=== PATIENT | male | born 1960 | race Caucasian/White ===

== ENCOUNTER 2020-02-29 18:24 | Inpatient (IN) | payer MEDICAID, SELFPAY ==
[~2020-02-29] VITALS: Ht 193 cm; Wt 94.8 kg
[2020-02-29 18:48] VITALS: BP_SYST 150
--- NOTE | 2020-02-29 18:52 | NUR ---
Patient to ER CHAIR 1 for evaluation.
--- NOTE | 2020-02-29 18:53 | NUR ---
PATIENT BROUGHT IN S FROM HOME COMPLAINING OF ACUTE ONSET INTERMITTENT CRAMPING SHARP MID BACK PAIN RADIATING TO UPPER BACK AND LEFT FLANK. REPORTS HE WAS BUILDING A CAGE WHEN IT HAPPENED. DENIES ANY TRAUMA. REPORTS HE VOMITED X 2 AND LOST CONSCIOUSNESS X 4 DUE TO PAIN. PATIENT WAS GIVEN 4MG OF MORPHINE SULFATE IM FROM MEDICS IN FIELD. PAIN 10/10. PATIENT IS RESTLESS AND UNABLE TO SIT. REPORTS HX OF CHRONIC BACK PAIN AND HTN. NO OTHER COMPLAINTS/INJURIES PER PATIENT OR NOTED. WILL CONTINUE TO MONITOR.
--- NOTE | 2020-02-29 19:01 | NUR ---
MATHIEU SARMIENTO examining patient.
--- NOTE | 2020-02-29 19:05 | NUR ---
MOVED TO BED 3
[2020-02-29] MEDS ORDERED: MORPHINE 4 MG/ML INJ. SYRINGE IVP ONE (19:15)
[2020-02-29] MEDS ORDERED: NACL 0.9% 1,000 ML IV ONE (19:15)
[2020-02-29] MEDS ORDERED: ONDANSETRON HCL 4 MG/2 ML VIAL IVP ONE (19:15)
--- NOTE | 2020-02-29 19:20 | NUR ---
ER Dr. Harper at bedside examining patient.
--- NOTE | 2020-02-29 19:25 | NUR ---
# 20 gauge angiocath placed to LAC. Use of asceptic technique. Opsite placed over site. Blood return noted. Blood for lab drawn from site. Flushed with 10 cc of normal saline. No evidence of infiltration noted. Patient tolerated well.
[2020-02-29] MEDS ORDERED: LORazepam 2 MG/ML VIAL IVP ONE (19:30)
[2020-02-29] MEDS ORDERED: METOPROLOL TARTRATE 5 MG/5 ML VIAL IVP ONE (19:30)
--- NOTE | 2020-02-29 19:37 | NUR ---
Medicated per MD orders. IVF infusing with no s/s of infiltration at this time. Will cont to monitor
[2020-02-29 19:42] LABS: BASOPHILS # (AUTO) 0.1 K/uL (0.0-0.2); BASOPHILS % (AUTO) 0.7 % (0.0-2.0); EOSINOPHILS # (AUTO) 0.2 K/uL (0.0-0.4); EOSINOPHILS % (AUTO) 1.3 % (0.0-4.0); HEMATOCRIT 48.9 % (36-54); HEMOGLOBIN 17.1 g/dL (14.0-18.0); LYMPHOCYTES # (AUTO) 1.6 K/uL (1.0-5.5); LYMPHOCYTES % (AUTO) 9.2 % (20.5-51.5); MEAN CORPUSCULAR HEMOGLOBIN 34 pg (27-31); MEAN CORPUSCULAR HGB CONC 35 % (32-36); MEAN CORPUSCULAR VOLUME 96 fL (79.0-98.0); MONOCYTES # (AUTO) 2.5 K/uL (0.0-1.0); MONOCYTES % (AUTO) 14.5 % (1.7-9.3); NEUTROPHILS # (AUTO) 12.6 K/uL (1.8-7.7); NEUTROPHILS % (AUTO) 74.3 % (40.0-70.0); PLATELET COUNT (AUTO) 268 K/uL (130-430); RED CELL DISTRIBUTION WIDTH 13.2 % (9.0-15.0)
[2020-02-29] MEDS ORDERED: METOPROLOL TARTRATE 5 MG/5 ML VIAL ONE (19:49)
[2020-02-29] MEDS ORDERED: LORazepam 2 MG/ML VIAL ONE (19:49)
[2020-02-29 19:59] LABS: PROTHROMBIN TIME 10.2 SECS (9.5-12.5)
[2020-02-29 20:00] LABS: CALCIUM 9.2 mg/dL (8.4-11.0); CREATININE 1.53 mg/dL (0.55-1.30); POTASSIUM 3.6 mmol/L (3.5-5.1)
[2020-02-29 20:15] LABS: ALBUMIN 4.4 g/dL (3.4-4.8); TOTAL BILIRUBIN 0.8 mg/dL (0.0-1.0)
--- NOTE | 2020-02-29 20:38 | NUR ---
Patient resting quietly. No acute distress noted. bp 150/112 AFTER LOPRESSOR 5MG IVP.DR. SANCHEZ NOTIFIED
[2020-02-29] MEDS ORDERED: fentaNYL CITRATE/PF 100 MCG/2 ML AMP IVP ONE ×2 (21:00→21:45)
[2020-02-29 21:12] LABS: BILIRUBIN,URINE NEGATIVE (NEGATIVE); BLOOD, URINE 2+ (NEGATIVE); CLARITY/URINE CLEAR (CLEAR); COLOR,URINE YELLOW (YELLOW); GLUCOSE,URINE NEGATIVE (NEGATIVE); KETONES,URINE 1+ (NEGATIVE); LEUKOCYTE ESTERASE ,URINE NEGATIVE (NEGATIVE); NITRITE, URINE NEGATIVE (NEGATIVE); PH,URINE 6.5 (5.0-8.0); PROTEIN URINE TRACE (NEGATIVE); UROBILINOGEN,URINE 0.2 (0.2-1.0)
[2020-02-29 21:48] LABS: BACTERIA,URINE None Seen /HPF (None Seen); RBC,URINE 20-50 /HPF (0-3); WBC,URINE NONE SEEN /HPF (0-3)
--- NOTE | 2020-02-29 22:07 | NUR ---
MAGED MOJICA OBTAINED AND SENT TO LAB FOR PROCESSING
--- NOTE | 2020-02-29 22:08 | NUR ---
CODE STATUS FORM PLACED IN CHART. PATIENT STATES HE IS FULL CODE
--- NOTE | 2020-02-29 22:08 | NUR ---
PATIENT STATES HE IS FULL CODE
--- NOTE | 2020-02-29 22:19 | NUR ---
ER at bedside DISCUSSING RESULTS OF CT SCAN AND ADMISSION
[2020-02-29] MEDS ORDERED: HYDROmorphone 1 MG INJ. 1 MG/ML AMPUL IVP PRN (22:30)
--- NOTE | 2020-02-29 22:42 | NUR ---
Cici boss in [facility] - 02/29/20 at 2243 by SDEDCJM PATIEN RETURNED FROM CT SCAN
--- NOTE | 2020-02-29 22:43 | NUR ---
Patient will be admitted to care of DR CASTLE. Admitted to MED SURG unit. Will go to room 117A. . Complete and up to date summary report printed. SBAR report to be given at bedside with opportunity for questions.
[2020-02-29] MEDS: HYDROmorphone 2 MG/ML VIAL IVP PRN (22:55)
[2020-02-29] MEDS: cloNIDine HCL 0.1 MG TABLET PO PRN (23:11)
[2020-02-29] MEDS ORDERED: HYDROmorphone 2 MG/ML VIAL ONE (23:11)
[2020-02-29] MEDS: METOCLOPRAMIDE HCL 10 MG/2 ML VIAL IVP SCH (23:12)
[2020-02-29] MEDS ORDERED: cefTRIAXone 2 GM VIAL ONE (23:22)
--- NOTE | 2020-02-29 23:58 | NUR ---
PATIENT SLEEPING IN [facility]. PAIN 0/10, BP IS 147/101. MD JONES NOTIFIED. ORDERED TORADOL 30 MG IVP.
[2020-03-01] MEDS ORDERED: cloNIDine HCL 0.1 MG TABLET PO ONE
[2020-03-01] MEDS ORDERED: KETOROLAC TROMETHAMINE 30 MG VIAL IVP ONE
[2020-03-01] MEDS: D5NS 1,000 ML IV SCH ×4 (00:09→20:06)
--- NOTE | 2020-03-01 00:10 | NUR ---
IV IN RAC UNABLE TO FLUSH. # 20 gauge angiocath placed to RAC. Use of asceptic technique. Opsite placed over site. Blood return noted. Flushed with 10 cc of normal saline. No evidence of infiltration noted. Patient tolerated well.
--- NOTE | 2020-03-01 00:26 | NUR ---
CONSULTATION PAGED/CALLED Reason for Consultation: OBSTRUCTING KIDNEY STONE Person Who was Notified: CARIDAD Consulting Physician: ONESIMO MURCIA IS PULLEY MORTISER OPERATOR Laser Engineer Specialty: Ordering Physician: Ilana NUNEZ
--- NOTE | 2020-03-01 00:29 | NUR ---
REPORT GIVEN TO ILIANA BELCHER
--- NOTE | 2020-03-01 00:30 | NUR ---
Transfer to [facility]. IV present no sign or symptom of infiltration.
--- NOTE | 2020-03-01 00:48 | NUR ---
ADMISSION NOTE Received patient from ER via gurney. Patient admitted with diagnosis of RENAL CHOLIC. Patient is awake, alert, oriented X 4. Patient oriented to hospital room, call light, toileting, pain management and safety-teach back done. Patient informed that KAPIL will be nurse and that their room number is 117A. Personal belongings checked and Belongings List documented. Call light within reach.
[2020-03-01 00:50] VITALS: BP_SYST 139
[2020-03-01] MEDS: METOCLOPRAMIDE HCL 10 MG/2 ML VIAL IVP SCH ×3 (05:34→21:13)
[2020-03-01 08:00] VITALS: BP_SYST 122
--- NOTE | 2020-03-01 08:00 | NUR ---
Note Pt sitting up in bed eating his breakfast. No SOB/resp distress or pain/discomfort was noted. IV in right hand intact and patent infusing IVF's well. No needs noted at this time. Call light within reach.
--- NOTE | 2020-03-01 08:47 | NUR ---
CONSULTATION: REASON FOR CONSULT: RENAL COLIC CONSULTING PHYSICIAN: JASMYN SIMPSON ORDERED BY: TIN SPOKE WITH [facility] [phone]
--- NOTE | 2020-03-01 10:01 | NUR ---
CONSULTATION: REASON FOR CONSULT: SYNCOPE CONSULTING PHYSICIAN: LIBIA BENJAMIN ORDERED BY: TIN SPOKE WITH [facility] [phone] DR BAPTISTE IS ORGANISATIONAL PSYCHOLOGIST
--- NOTE | 2020-03-01 11:00 | NUR ---
Note Dr Pena was on the floor to assess pt at 11am.
[2020-03-01 11:26] VITALS: BP_SYST 133
--- NOTE | 2020-03-01 12:00 | NUR ---
Note Pt had 2D echo done at bedside at 1110am. Tele unit was applied at 1130am after 2D echo was completed. No needs noted. Call light within reach.
--- NOTE | 2020-03-01 14:30 | NUR ---
Note Pt has been ambulatory to restroom independently without any dizziness or syncope episodes. Dr Jama on the floor to assess pt and write orders at this time. No needs noted at this time. Call light within reach.
--- NOTE | 2020-03-01 14:45 | NUR ---
Note Received call from Dr Anselmo Dupree's (urology) PA, that MD will be unable to take this pt for consult.
[2020-03-01 15:35] VITALS: BP_SYST 135
--- NOTE | 2020-03-01 18:35 | NUR ---
Note Pt ambulatory in hallway and in room independently with IV pole. No SOB/resp distress or severe back/flank pain/discomfort noted all shift. Tele unit attached and intact. IV in right hand intact and patent infusing IVF's well. Pt was checked on q1' and PRN all shift for needs and care. Pt was maintained with safety precautions all shift. No needs noted at this time. Call light within reach. Side rails up X2 and bed in low position all shift. Pt refuses bed alarm as he walks to restroom throughout the shift with steady gait.
--- NOTE | 2020-03-01 19:45 | NUR ---
OPENING NOTES Received report from ILIANA Holley. Patient resting in bed, AAOx4, breathing evenly and nonlabored on room air. Patient has an IV on the right hand 20g, IVF running, patent and benign, no s/s of infiltration or infection noted at this time, patient tolerating IVF well. Educated patient on plan of care, fall/safety precautions, call light system, patient stated understanding with return demonstration. Patient denies any pain at this time. No other needs at this time. Fall/safety precautions, will continue to monitor.
[2020-03-01 20:00] VITALS: BP_SYST 143
--- NOTE | 2020-03-01 20:06 | NUR ---
MEDICATIONS/ROUNDS Patient resting in bed, awake, breathing evenly and nonlabored on room air. IVF replaced, patient tolerating it well. Vital signs within normal limits. Patient asked for some snacks which was provided. No s/s of distress at this time, no other needs at this time. Fall/safety precautions, will continue to monitor.
--- NOTE | 2020-03-01 20:47 | NUR ---
SPOKE WITH DR. BAPTISTE EARLIER, MD GAVE CLEARANCE FOR SURGERY TOMORROW. NOTIFIED AND SPOKE TO DR. TATIANA MD ORDERED FOR PATIENT TO BE ON NPO STATUS AT MIDNIGHT 03/02/2020 AND THAT PATIENT WILL HAVE SURGERY "FIRST THING IN THE MORNING." MD AWARE THAT PATIENT HAS NOT SIGNED A CONSENT FORM YET, SAID HE ALREADY SPOKE WITH THE PATIENT.
[2020-03-01] MEDS ORDERED: cefTRIAXone 1 GM IVPB PREMIX 50 ML IV SCH (21:00)
--- NOTE | 2020-03-01 21:13 | NUR ---
MEDICATIONS/ROUNDS Patient resting in bed, awake, breathing evenly and nonlabored on room air. Educated patient on due medication, patient stated understanding. Administered medication, patient tolerated it well. Educated patient on NPO status and notified about surgery tomorrow, patient declined to sign consent form saying he was "not comfortable signing yet," and "wants to talk to Dr. Blank again before surgery," and that he has more questions. However, patient agreed to be NPO at midnight and to do preop preparations. No other needs at this time. Fall/safety precautions, will continue to monitor.
--- NOTE | 2020-03-01 23:45 | NUR ---
ROUNDS Patient resting in bed, awake, breathing evenly and nonlabored on room air. Reminded patient of NPO status at midnight patient stated understanding. Patient denies any pain at this time. No s/s of distress at this time, no other needs at this time. Fall/safety precautions, will continue to monitor.
[2020-03-02] VITALS: BP_SYST 146
[2020-03-02 01:00] VITALS: BP_SYST 157
--- NOTE | 2020-03-02 01:01 | NUR ---
ROUNDS Patient resting in bed, eyes closed, breathing evenly and nonlabored on room air. No s/s of distress at this time, no other needs at this time. Fall/safety precautions, will continue to monitor.
--- NOTE | 2020-03-02 02:05 | NUR ---
ROUNDS Patient resting in bed, awake, breathing evenly and nonlabored on room air. Leads adjusted for the telemonitor. Test for MRSA of bilateral nares done, patient tolerated it well. Reinforced teaching on plan of care, patient stated understanding. No s/s of distress at this time, no other needs at this time. Fall/safety precautions, will continue to monitor.
[2020-03-02] MEDS: D5NS 1,000 ML IV SCH ×2 (04:58→14:30)
[2020-03-02] MEDS: METOCLOPRAMIDE HCL 10 MG/2 ML VIAL IVP SCH ×2 (05:01→14:46)
--- NOTE | 2020-03-02 05:15 | NUR ---
MEDICATIONS/ROUNDS Patient resting in bed, awake, breathing evenly and nonlabored on room air. IVF replaced, patient tolerating it well. Educated patient on due medication, patient stated understanding. Administered medication, patient tolerated it well. Hygiene care done, CHG bath done, linens changed with PEDIATRIC NP. Patient signed consent form for blood transfusion. No s/s of distress at this time, no other needs at this time. Fall/safety precautions, will continue to monitor.
--- NOTE | 2020-03-02 06:12 | NUR ---
CLOSING NOTES Patient resting in bed, eyes closed, breathing evenly and nonlabored on room air. No s/s of distress at this time, no other needs at this time. Needs met throughout the shift. Fall/safety precautions, will endorse care to morning shift RN.
--- NOTE | 2020-03-02 07:09 | NUR ---
SPOKE WITH DR. XAVIER, NOTIFIED OF SLIGHTLY ELEVATED BP AT 148/102, SAID OK, UPDATED OF PATIENT'S STATUS.
--- NOTE | 2020-03-02 07:15 | NUR ---
OPENING NOTE RECEIVED BEDSIDE SBAR FROM NIGHT RN, PATIENT IN BED, RESPIRATIONS EVEN, NON LABORED, BED IN LOW AND LOCKED POSITION, CALL LIGHT WITHIN REACH,
--- NOTE | 2020-03-02 07:40 | NUR ---
LEFT FOR SURGERY PATIENT LEFT FOR SURGERY VIA GURNEY
[2020-03-02] MEDS ORDERED: GLYCOPYRROLATE 0.2 MG/ML VIAL IJ ONE (07:51)
[2020-03-02] MEDS ORDERED: ePHEDrine sulfate 50 MG/ML VIAL IVP ONE (07:51)
[2020-03-02] MEDS ORDERED: SEVOFLURANE 15 MIN GAS INH ONE (07:51)
[2020-03-02] MEDS ORDERED: fentaNYL CITRATE/PF 100 MCG/2 ML AMP IVP ONE (07:51)
[2020-03-02] MEDS ORDERED: DEXAMETHASONE SOD PHOSPHATE 4 MG/ML VIAL IVP ONE (07:51)
[2020-03-02] MEDS ORDERED: MIDAZOLAM HCL 5 MG/5 ML VIAL IVP ONE (07:51)
[2020-03-02] MEDS ORDERED: IOPAMIDOL 50 ML VIAL IV ONE (07:51)
[2020-03-02] MEDS ORDERED: NS IRRIG SOLN 5000 ML IR ONE (07:51)
[2020-03-02] MEDS ORDERED: LR 1,000 ML IV.SOLN IV ONE (07:51)
[2020-03-02] MEDS ORDERED: ONDANSETRON HCL 4 MG/2 ML VIAL IVP ONE (07:51)
[2020-03-02] MEDS ORDERED: cefTRIAXone 1 GM VIAL IV ONE (07:51)
[2020-03-02] MEDS ORDERED: LABETALOL 100 MG/ 20ML VIAL IVP PRN (09:15)
[2020-03-02] MEDS ORDERED: LR 1,000 ML IV SCH (09:15)
[2020-03-02] MEDS ORDERED: ONDANSETRON HCL 4 MG/2 ML VIAL IVP PRN (09:15)
[2020-03-02] MEDS ORDERED: hydrALAZINE HCL 20 MG/ML VIAL IVP PRN (09:15)
[2020-03-02] MEDS ORDERED: NALOXONE HCL 0.4 MG/ML AMP (NARCAN) IVP PRN (09:15)
[2020-03-02] MEDS ORDERED: METOCLOPRAMIDE HCL 10 MG/2 ML VIAL IVP PRN (09:15)
[2020-03-02] MEDS ORDERED: HYDROmorphone 1 MG INJ. 1 MG/ML AMPUL IVP PRN (09:15)
--- NOTE | 2020-03-02 10:09 | NUR ---
nurse note returned from surgery, patient in bed, eyes closed, bed in low and locked position, call light within reach, bed alarm on,
[2020-03-02 10:21] LABS: BASOPHILS # (AUTO) 0.2 K/uL (0.0-0.2); BASOPHILS % (AUTO) 2.1 % (0.0-2.0); EOSINOPHILS # (AUTO) 0.3 K/uL (0.0-0.4); EOSINOPHILS % (AUTO) 3.6 % (0.0-4.0); HEMATOCRIT 45.5 % (36-54); HEMOGLOBIN 15.4 g/dL (14.0-18.0); LYMPHOCYTES # (AUTO) 2.2 K/uL (1.0-5.5); LYMPHOCYTES % (AUTO) 28.4 % (20.5-51.5); MEAN CORPUSCULAR HEMOGLOBIN 33 pg (27-31); MEAN CORPUSCULAR HGB CONC 34 % (32-36); MEAN CORPUSCULAR VOLUME 99 fL (79.0-98.0); MONOCYTES # (AUTO) 1.2 K/uL (0.0-1.0); MONOCYTES % (AUTO) 15.1 % (1.7-9.3); NEUTROPHILS # (AUTO) 3.9 K/uL (1.8-7.7); NEUTROPHILS % (AUTO) 50.8 % (40.0-70.0); PLATELET COUNT (AUTO) 216 K/uL (130-430); RED CELL DISTRIBUTION WIDTH 13.3 % (9.0-15.0); WHITE BLOOD COUNT (AUTO) 7.7 K/uL (4.8-10.8)
[2020-03-02 10:26] LABS: CALCIUM 7.9 mg/dL (8.4-11.0); CREATININE 0.95 mg/dL (0.55-1.30); POTASSIUM 4.5 mmol/L (3.5-5.1)
[2020-03-02 10:31] LABS: ALBUMIN 3.5 g/dL (3.4-4.8); TOTAL BILIRUBIN 0.7 mg/dL (0.0-1.0)
--- NOTE | 2020-03-02 10:40 | NUR ---
nurse note patient in bed, respirations even, non labored, bed in low and locked position, call light within reach, bed alarm on, educated patient regarding the indications and proper use of incentive spirometer, patient verbalized understanding, and was able to use correctly
--- NOTE | 2020-03-02 10:50 | NUR ---
nurse note increased bp, medications given as ordered. patient complaining of pain 5/10, repositioned patient, patient requesting medication
[2020-03-02] MEDS: HYDROmorphone 2 MG/ML VIAL IVP PRN (11:08)
--- NOTE | 2020-03-02 12:01 | NUR ---
nurse note patient states pain is improved, no discomfort
--- NOTE | 2020-03-02 14:50 | NUR ---
nurse note patient up ambulating around the halls, denies any pain or discomfort, respirations even ,non labored, bed in low and locked position
[2020-03-02 15:40] VITALS: BP_SYST 149
--- NOTE | 2020-03-02 17:00 | NUR ---
nurse note patient up ambulating, denies any pain or discomfort, no sign of distress noted
--- NOTE | 2020-03-02 18:33 | NUR ---
nurse note patient in bed, respirations even, non labored, bed in low and locked position, call light within reach, denies any pain or discomfort,
--- NOTE | 2020-03-02 19:05 | NUR ---
nurse note patient complaining of pain, 3/, requested pain medication. bed in low and locked position, call light within reach
--- NOTE | 2020-03-02 19:17 | NUR ---
closing note provided sbar to night rn, patient in bed, eyes closed, ivf's running as ordered, bed in low and locked position endorsed care to night rn
[2020-03-03] MEDS: METOCLOPRAMIDE HCL 10 MG/2 ML VIAL IVP SCH (06:23)
[2020-03-03] MEDS: D5NS 1,000 ML IV SCH (06:32)
[2020-03-03 08:00] VITALS: BP_SYST 147
--- NOTE | 2020-03-03 08:33 | NUR ---
alert, oriented, ambulates in the hallway. first seen back to bed, after finished 100% consumption of breakfast " frustrated bec i dont even know who my dr is, the only dr i have known of, did the procedure yesterday dr Blank" " fine, eat well, drink well, and feel good, ready to go home".
--- NOTE | 2020-03-03 09:57 | NUR ---
Nutrition Update Jet Scale 15 noted. Pt admitted for renal colic. Diet: regular BMI: 25.4 kg/m2 RD to follow per nutrition care standards.
[2020-03-03 11:17] LABS: BASOPHILS % (AUTO) 0.3 % (0.0-2.0); EOSINOPHILS # (AUTO) 0.1 K/uL (0.0-0.4); EOSINOPHILS % (AUTO) 0.8 % (0.0-4.0); HEMATOCRIT 41.5 % (36-54); HEMOGLOBIN 14.1 g/dL (14.0-18.0); LYMPHOCYTES # (AUTO) 1.6 K/uL (1.0-5.5); LYMPHOCYTES % (AUTO) 14.4 % (20.5-51.5); MEAN CORPUSCULAR HEMOGLOBIN 33 pg (27-31); MEAN CORPUSCULAR HGB CONC 34 % (32-36); MEAN CORPUSCULAR VOLUME 97 fL (79.0-98.0); MONOCYTES # (AUTO) 1.7 K/uL (0.0-1.0); MONOCYTES % (AUTO) 15.3 % (1.7-9.3); NEUTROPHILS # (AUTO) 7.8 K/uL (1.8-7.7); NEUTROPHILS % (AUTO) 69.2 % (40.0-70.0); PLATELET COUNT (AUTO) 222 K/uL (130-430); RED BLOOD CELL COUNT(AUTO) 4.26 MIL/uL (4.2-6.2); WHITE BLOOD COUNT (AUTO) 11.2 K/uL (4.8-10.8)
[2020-03-03 11:29] LABS: CALCIUM 8.1 mg/dL (8.4-11.0); CREATININE 0.99 mg/dL (0.55-1.30); POTASSIUM 3.3 mmol/L (3.5-5.1)
[2020-03-03 11:32] VITALS: BP_SYST 171
[2020-03-03] MEDS ORDERED: LEVO750T45 PO (11:34)
[2020-03-03] MEDS ORDERED: levaquin PO (11:37)
[2020-03-03] MEDS ORDERED: TAMS-11 PO (11:38)
[2020-03-03] MEDS: cloNIDine HCL 0.1 MG TABLET PO PRN (12:37)
[2020-03-03 14:17] VITALS: BP_SYST 147
--- NOTE | 2020-03-03 14:35 | NUR ---
seen by attending this am, blood work ordered prior to discharge this patient home. CBC and CMP, K+ 3.3., other than that everything appeared normal BP at noon from 163-170/127, clonidine o.1mg po given, not seem to help that much, retaken, 162/110 replaced with 40meq K dur prior to discharge.
--- NOTE | 2020-03-03 14:36 | NUR ---
MADE MY THIRD CALL TO ATTENDING MD DR CASTLE, RE: LOW K LEVEL AND HIGH BP (163/110). SPOKE TO ALESHA
[2020-03-03] MEDS ORDERED: POTASSIUM CHLORIDE 20 MEQ TAB.PRT.SR PO ONE (14:45)
== END 2020-03-03 15:15 | disposition home or self-care (01) | DRG 446 ==
LOC: SED 18:24 → SMU 22:28 → STU 03-01 19:03
PROVIDERS: ADMIT Internal Medicine Hospice and Palliative Medicine; ATTEND Internal Medicine Hospice and Palliative Medicine
PROC: 0T778DZ Dilation of Left Ureter with Intraluminal Device, Via Natural or Artificial Opening Endoscopic (ICD-10-PCS; 2020-03-02)
PROC: 0TC78ZZ Extirpation of Matter from Left Ureter, Via Natural or Artificial Opening Endoscopic (ICD-10-PCS; principal; 2020-03-02 07:30)
DX: N13.2 Hydronephrosis with renal and ureteral calculous obstruction (principal); I10 Essential (primary) hypertension; F17.210 Nicotine dependence, cigarettes, uncomplicated; J44.9 Chronic obstructive pulmonary disease, unspecified; D72.829 Elevated white blood cell count, unspecified; Z20.828 Contact with and (suspected) exposure to other viral communicable diseases; Z56.0 Unemployment, unspecified; N17.0 Acute kidney failure with tubular necrosis; R65.10 Systemic inflammatory response syndrome (SIRS) of non-infectious origin without acute organ dysfunction
CPT/HCPCS: 36415; 71045; 71250-TC; 72128; 72131; 76000; 76376; 80048; 80053; 81000-TC; 82360; 83605; 83690-TC; 84484; 85025; 85610-TC; 85730-TC; 86886; 86900; 86901; 87040-TC; 87081; 88300; 93005; 93306; 96374; 96375; 96376; 99285; C1758; C1769; C2625; G0378; J0360; J0696; J1100; J1170; J1885; J2060; J2250; J2270; J2405; J2765; J3010; J3490; J7042; J7120; Q9967